=== PATIENT | male | born 1995 | race African-American/Black ===

== ENCOUNTER 2021-12-12 18:02 | Emergency (ER) | payer MEDICAID ==
[~2021-12-12] VITALS: Ht 182.9 cm; Wt 88.0 kg
[2021-12-12 18:04] VITALS: BP 126/69
[2021-12-12] MEDS ORDERED: SODIUM CHLORIDE 0.9% 1,000 ML IV ONE ×2 (18:15→18:45)
[2021-12-12] MEDS ORDERED: ONDANSETRON HCL 4MG/2ML INJ IV STA (18:33)
[2021-12-12 18:57] LABS: BASOPHILS % 0.4 % (0.0-2.0); EOSINOPHILS % 0.5 % (0.0-5.0); HEMOGLOBIN. 12.7 g/dL (14.0-18.0); LYMPHOCYTES % 11.5 % (20.0-50.0); MEAN CORPUSCULAR HEMOGLOBIN 31.7 pg (28.0-32.0); MEAN CORPUSCULAR VOLUME 92.3 fL (80.0-94.0); MEAN PLATELET VOLUME 8.6 fl (7.4-10.4); MONOCYTES % 8.2 % (2.0-8.0); NEUTROPHILS % 79.4 % (40.0-76.0); PLATELET 228 x1000/uL (130-400); RED BLOOD CELL COUNT 4.01 mill/uL (4.7-6.1); RED CELL DISTRIBUTION WIDTH 15.2 % (11.6-14.6)
[2021-12-12 19:07] LABS: CHLORIDE 109 mEq/L (98-107)
[2021-12-12 19:15] LABS: ETHANOL BLOOD < 10 mg/dL
[2021-12-12] MEDS ORDERED: NALO4SPR BOTHNSTRLS (20:04)
== END 2021-12-12 20:08 | disposition left against medical advice (07) ==
LOC: ER 18:02
DX: T40.711A Poisoning by cannabis, accidental (unintentional), initial encounter (principal); T51.0X1A Toxic effect of ethanol, accidental (unintentional), initial encounter; G92.8 Other toxic encephalopathy; F10.129 Alcohol abuse with intoxication, unspecified; Y90.9 Presence of alcohol in blood, level not specified; Y92.89 Other specified places as the place of occurrence of the external cause
CPT/HCPCS: 36415; 80053; 80307; 80320; 80329; 85025; 96361; 96374; 99283; J2405; J7030; 80305; 81003; G0480